=== PATIENT | male | born 1930 | race Caucasian/White ===

== ENCOUNTER 2017-04-15 11:49 | Emergency (ER) | payer MEDICARE, BC ==
[2017-04-15 12:14] VITALS: BP 138/56
[2017-04-15] MEDS ORDERED: METHYLPREDNISOLONE ACETATE 80 MG/ML VIAL IM ONE (13:03)
[2017-04-15] MEDS ORDERED: METHYLPREDNISOLONE ACETATE 80 MG/ML VIAL ONE (13:09)
--- NOTE | 2017-04-15 13:15 | ERNOTE ---
Lower Extremity HPI - Narrative Date of Service: 04/15/17 - General Lower Extremities Pain: knee: right Time Seen by Provider: 04/15/17 12:32 Source: patient, family - patient has had knee pain for last 4-5 days on lateral aspect of right knee, no known injury - Immun/Allergies/Home Medications Immunizations: IMMUNIZATION HX Immunizations Up to Date Yes History of Influenza Vaccine Yes Hx Pneumococcal Vaccination Yes Allergies/Adverse Reactions: Allergies Allergy/AdvReac Type Severity Reaction Status Date / Time penicillin G Allergy Unknown Verified 04/15/17 12:14 Home Medications: HOME MEDICATIONS Aspirin 81 mg PO DAILY 01/08/16 [Last Taken Unknown] Atorvastatin Calcium [Lipitor] 40 mg PO HS 01/08/16 [Last Taken Unknown] Cholecalciferol [Vitamin D] 2,000 unit PO DAILY 01/08/16 [Last Taken Unknown] Doxazosin Mesylate [Cardura] 8 mg PO DAILY 01/08/16 [Last Taken Unknown] Finasteride [Proscar] 5 mg PO DAILY 01/08/16 [Last Taken Unknown] Hydrochlorothiazide [Hydrodiuril] 25 mg PO DAILY 01/08/16 [Last Taken Unknown] Insulin NPH Hum/Reg Insulin Hm [Relion Novolin 70-30 Vial] 80 unit SQ BID [Last Taken Unknown] Lisinopril [Zestril] 20 mg PO BID 01/08/16 [Last Taken Unknown] Metoprolol Tartrate [Lopressor] 25 mg PO BID 01/08/16 [Last Taken Unknown] buPROPion HCL [Wellbutrin XL] 150 mg PO DAILY 01/08/16 [Last Taken Unknown] HYDROcodone/ACETAMINOPHEN [Spring 5-325] 1 tab PO Q4H PRN #40 tab 04/15/17 [Last Taken Unknown] Naproxen [Naprosyn] 375 mg PO BID #30 tab 04/15/17 [Last Taken Unknown] - History of Present Illness Narrative: pain and swelling to right knee Occurred: last week - onset of pain last week Method of Injury: Reports: twisted Reason for Fall: Reports: other - no recent fall Loss of Consciousness: Reports: no loss of consciousness Modifying Factors - (Improves): Reports: other - nothing Modifying Factors - (Worsens): Reports: movement Other Injuries: Reports: none Review of Systems - Narrative Narrative: no other complaints except right knee - Review of Systems Constitutional: Present: See HPI, weakness, fatigue EYE: Present: no symptoms reported ENT: Present: no symptoms reported Respiratory: Present: no symptoms reported Cardiology: Present: no symptoms reported Gastrointestinal/Abdominal: Present: no symptoms reported Genitourinary: Present: no symptoms reported Musculoskeletal: Present: See HPI, joint pain, joint swelling, other - pain only in right knee Skin: Present: no symptoms reported Neurological: Present: no symptoms reported Endocrine: Present: no symptoms reported Hematologic/Lymphatic: Present: no symptoms reported Psych: Present: no symptoms reported All Other Systems: All systems neg except as marked - Narrative Narrative: unremarkable - Patient's Past Medical History Patient History - Medical: Diabetes Type 2, Depression Patient History - Cardiac/Respiratory: Hypertension, Hyperlipidemia, Myocardial Infarction, TIA Patient History - Cancer: Skin Patient History - Surgical Procedures: Noncontributory, Other Patient History - Other: None - Family History Family History:: no untoward family reactions to anesthesia, no familial bleeding tendencies, no family history of clotting disorders, no family history of premature - Social History Living Situations: significant other Abuse History: No History of abuse Psych History: No pertinent hx Does anyone smoke in the home?: No Smoking Status: Former smoker Have you smoked in the past 12 months: No Do you dip or chew tobacco: No Patient requests Smoking Cessation Consult: No Initiate information on Smoking Cessation: No Alcohol Use: none Drug Use: none - Immunizations Immunizations Up to Date: Yes Hx Pneumococcal Vaccination: Yes History of Influenza Vaccine: Yes Physical Exam - Physical Exam General Appearance: Present: moderate distress Head Exam: Present: normal inspection, no evidence of injury Eye Exam: Normal inspection: bilateral, PERRL: bilateral, EOMI: bilateral Ears, Nose, Throat: Present: normal ENT inspection Neck: Present: normal inspection, nontender Respiratory: Present: no respiratory distress, normal breath sounds, no accessory muscle use, chest nontender, lungs clear Cardiovascular/Chest: Present: regular rate, rhythm, no murmur, normal peripheral pulses Peripheral Pulses: N=norm/S=strong/W=weak/B=bound/A=absent: Carotid (R): Normal , Carotid (L): Normal, Radial (R): Normal, Radial (L): Normal, Femoral (R): Normal, Femoral (L): Normal, Dorsalis-pedis (R): Normal, Dorsalis-pedis (L): Normal Gastrointestinal/Abdominal: Present: normal bowel sounds, nontender, nondistended, soft, no organomegaly Back Exam: Present: normal inspection, normal range of motion, no CVA tenderness , no vertebral tenderness Extremity Exam: Present: bony tenderness - pain in lateral aspect of right knee , joint swelling Neurological Exam: Present: alert, oriented, normal mood/affect, no motor/ sensory deficits DTR: N=norm/NB=norm/brisk/A=abs/DD=dull/dimin/HC=hyperactive: Bicep (R): Normal , Bicep (L): Normal, Tricep (R): Normal, Tricep (L): Normal, Knee (R): Normal, Knee (L): Normal, Ankle (R): Normal, Ankle (L): Normal Skin Exam: Present: normal color, warm/dry Lymphatic Exam: Present: no adenopathy ED Progress - Date and Time Seen: Date and Time: 04/15/17 13:11 unremarkable - Vital Signs Patient's Vital Signs:: I have reviewed the patient's vital signs. Vital Signs: Vital Signs 04/15/17 12:08 Temperature 36.6 C Pulse Rate 78 Respiratory 17 Rate Blood Pressure 138/56 O2 Sat by Pulse 91 Oximetry - X-Ray X-Ray #1 X-Ray: knee - no apparrent fracture, degenerative joint disease - Progress/Reassessment Chief Complaint: Lower Extremity Pain/ Injury Progress:: Unchanged - Transfer of Care Expected Disposition: Discharge Plan - Plan Plan: to be discharged Departure Clinical Impression: Arthritis of knee, right - Departure Disposition: Home Follow Up Needed Condition: Fair Instructions: Osteoarthritis Referrals: Eloise Lee MD [Primary Care Provider] - Prescriptions: HYDROcodone/ACETAMINOPHEN [Spring 5-325] 1 tab PO Q4H PRN #40 tab PRN Reason: Pain Naproxen [Naprosyn] 375 mg PO BID #30 tab
== END 2017-04-15 14:34 | disposition home or self-care (01) ==
LOC: ER 11:49
DX: X50.1XXA Overexertion from prolonged static or awkward postures, initial encounter; E11.9 Type 2 diabetes mellitus without complications; Z85.828 Personal history of other malignant neoplasm of skin; F32.9 Major depressive disorder, single episode, unspecified; Z87.891 Personal history of nicotine dependence; M17.11 Unilateral primary osteoarthritis, right knee; I25.2 Old myocardial infarction; Z86.73 Personal history of transient ischemic attack (TIA), and cerebral infarction without residual deficits; I10 Essential (primary) hypertension; E78.5 Hyperlipidemia, unspecified; Z79.4 Long term (current) use of insulin